=== PATIENT | male | born 1930 | race African-American/Black ===

== ENCOUNTER 2018-04-22 13:18 | Inpatient (IN) | payer OTHER ==
[~2018-04-22] VITALS: Ht 165.1 cm; Wt 81.2 kg
[2018-04-22] MEDS ORDERED: ALBUTEROL (0.5%) 2.5MG/0.5ML NEB HHN ONE (14:00)
[2018-04-22 15:52] LABS: BASOPHILS % 0.5 % (0.0-2.0); HEMATOCRIT. 29.1 % (42.0-52.0); HEMOGLOBIN. 9.7 g/dL (14.0-18.0); LYMPHOCYTES % 14.8 % (20.0-50.0); MEAN CORPUSCULAR HEMOGLOBIN 31.9 pg (28.0-32.0); MEAN CORPUSCULAR VOLUME 95.4 fL (80.0-94.0); MEAN PLATELET VOLUME 7.7 fl (7.4-10.4); MONOCYTES % 7.8 % (2.0-8.0); NEUTROPHILS % 73.9 % (40.0-76.0); PLATELET 144 x1000/uL (130-400); RED BLOOD CELL COUNT 3.05 mill/uL (4.7-6.1); RED CELL DISTRIBUTION WIDTH 13.8 % (11.6-14.6)
[2018-04-22 15:58] LABS: INR 1.3; PARTIAL THROMBOPLASTIN TIME 29.2 sec (23.4-31.0); PROTHROMBIN TIME 12.7 sec (9.1-11.1)
[2018-04-22 16:03] LABS: CHLORIDE 115 mEq/L (98-107)
[2018-04-22 16:14] LABS: CREATINE KINASE 163 IU/L (39-308)
[2018-04-22] MEDS ORDERED: IPRATROPIUM/ALBUTEROL 0.5-3(2.5)MG/3ML NEB INH PRN (17:00)
[2018-04-22 17:05] LABS: CLARITY URINE CLEAR (CLEAR); COLOR URINE YELLOW (YELLOW); KETONES URINE NEGATIVE (NEGATIVE); LEUKOCYTE ESTERASE URINE NEGATIVE (NEGATIVE); NITRITE URINE NEGATIVE (NEGATIVE); OCCULT BLOOD URINE NEGATIVE (NEGATIVE); PROTEIN URINE NEGATIVE (NEGATIVE); SPECIFIC GRAVITY URINE 1.011 (1.005-1.030); UROBILINOGEN URINE 0.2 E.U./dL (0.2-1.0)
[2018-04-22 17:25] LABS: BG BASE EXCESS -3.7 mmol/L (-2.0-2.0); BG CARBOXYHEMOGLOBIN 0.1 % (0.5-1.5); BG DEOXYHEMOGLOBIN 7.3 % (0.0-5.0); BG FRACTION INSPIRED OXYGEN 21; BG HCO3 ACT 20.4 mmol/L (22.0-26.0); BG METHEMOGLOBIN 0.2 % (0.0-1.5); BG OXYGEN SATURATION 92.7 % (92.0-98.5); BG OXYHEMOGLOBIN 92.4 % (94.0-97.0); BG PCO2 33.6 mmHg (35.0-45.0); BG PH 7.402 (7.350-7.450); BG PO2 63.3 mmHg (75.0-100.0); BG SAMPLE SITE RIGHT RADIAL; BG TOTAL HEMOGLOBIN 9.8 g/dL (12.0-18.0); BG VENT MODE ROOM AIR
[2018-04-22 17:33] LABS: *AMPHETAMINES SCREEN URINE NEGATIVE (NEGATIVE); *BARBITURATES SCREEN URINE NEGATIVE (NEGATIVE); *BENZODIAZEPINES SCREEN URINE NEGATIVE (NEGATIVE); *COCAINE SCREEN URINE NEGATIVE (NEGATIVE)
[2018-04-22 17:34] LABS: CANNABINOID URINE SCREEN NEGATIVE (NEGATIVE); OPIATES URINE SCREEN NEGATIVE (NEGATIVE); PHENCYCLIDINE URINE SCREEN NEGATIVE (NEGATIVE)
[2018-04-22] MEDS: FUROSEMIDE 40MG/4ML VIAL IVP SCH (17:37)
[2018-04-22 17:40] LABS: METHADONE URINE SCREEN NEGATIVE (NEGATIVE)
[2018-04-22 22:45] VITALS: BP 165/53
[2018-04-23] MEDS ORDERED: DOXA2TAB2 PO (00:51)
[2018-04-23] MEDS ORDERED: TRAV2.5D EACHEYE (00:51)
[2018-04-23] MEDS ORDERED: TIOT18CA3 IH (00:51)
[2018-04-23] MEDS ORDERED: ALBU90AE INH (00:51)
[2018-04-23] MEDS ORDERED: IRBE300T18 PO (00:51)
[2018-04-23] MEDS ORDERED: BRIM10DR2 EACHEYE (00:51)
[2018-04-23] MEDS ORDERED: AMLO10TA80 PO (00:51)
[2018-04-23 04:00] VITALS: BP 134/50
[2018-04-23 06:01] LABS: BASOPHILS % 0.5 % (0.0-2.0); EOSINOPHILS % 4.8 % (0.0-5.0); HEMATOCRIT. 25.8 % (42.0-52.0); HEMOGLOBIN. 8.9 g/dL (14.0-18.0); LYMPHOCYTES % 12.8 % (20.0-50.0); MEAN CORPUSCULAR HEMOGLOBIN 32.4 pg (28.0-32.0); NEUTROPHILS % 69.9 % (40.0-76.0); PLATELET 119 x1000/uL (130-400); RED BLOOD CELL COUNT 2.74 mill/uL (4.7-6.1); RED CELL DISTRIBUTION WIDTH 13.9 % (11.6-14.6)
[2018-04-23 07:30] LABS: CHLORIDE 112 mEq/L (98-107)
[2018-04-23 07:37] LABS: HDL CHOLESTEROL 55 mg/dL (40-59); LDL CHOLESTEROL 66 mg/dL (5-100)
[2018-04-23 08:08] VITALS: BP 142/58
[2018-04-23] MEDS: FUROSEMIDE 40MG/4ML VIAL IVP SCH (08:56)
[2018-04-23] MEDS: FUROSEMIDE 20MG TABLET PO SCH ×2 (08:57→09:03)
[2018-04-23] MEDS ORDERED: ENOXAPARIN 40MG/0.4ML SYR SUBCUT SCH (09:00)
[2018-04-23] MEDS ORDERED: POTASSIUM CHLORIDE 20MEQ TABLET SR PO SCH (09:00)
[2018-04-23 12:00] VITALS: BP 127/48
[2018-04-23 15:58] VITALS: BP 128/72
[2018-04-23 16:11] VITALS: BP 132/52
== END 2018-04-23 17:25 | disposition home or self-care (01) | DRG 293 ==
LOC: ER 13:18 → 6WST 16:43 → ENRESERV 20:26 → 6WST 23:47
PROVIDERS: ADMIT Ophthalmology; ATTEND Ophthalmology
DX: I13.0 Hypertensive heart and chronic kidney disease with heart failure and stage 1 through stage 4 chronic kidney disease, or unspecified chronic kidney disease (principal); D50.9 Iron deficiency anemia, unspecified; H40.9 Unspecified glaucoma; I50.9 Heart failure, unspecified; J44.9 Chronic obstructive pulmonary disease, unspecified; N18.3 Chronic kidney disease, stage 3 (moderate); N40.0 Benign prostatic hyperplasia without lower urinary tract symptoms; R79.1 Abnormal coagulation profile; Z87.891 Personal history of nicotine dependence
CPT/HCPCS: 36415; 36600; 71045; 80048; 80061; 80305; 82375; 82550; 82728; 82805; 83540; 83550; 83880; 84443; 84484; 85379; 93005; 93306; 93970; 94640; 96374; 99285; J1650; J1940; J7611